=== PATIENT | female | born 1960 ===

== ENCOUNTER 2018-09-09 09:37 | Emergency (ER) | payer MEDICAID, OTHER ==
--- NOTE | 2018-09-09 09:47 | C.PDOC ---
History Of Present Illness 57 year old female presents to ED with complaint of back pain that began a 1 week ago. Patient describes the pain as throbbing to right paraspinal lumbar back. Patient states that she has been taking Tylenol and Motrin with some improvement. Patient came to the ED to figure out why she having this pain. She as a history of chronic back pain, hypertension, and hyperlipidemia. Patient denies IVDA, weight loss, loss of sensation, loss of bladder function, fever, chills, and night sweats. Time Seen by Provider: 09/09/18 09:47 Chief Complaint (Nursing): Back Pain History Per: Patient History/Exam Limitations: no limitations Onset/Duration Of Symptoms: Days (7) Current Symptoms Are (Timing): Still Present Quality Of Discomfort: Other (throbbing) Previous Symptoms: Chronic Pain Associated Symptoms: denies: Incontinence, New Weakness, New Numbness Exacerbating Factor(s): Nothing Past Medical History Reviewed: Historical Data, Nursing Documentation, Vital Signs Vital Signs: Last Vital Signs Temp 98.1 F 09/09/18 09:41 Pulse 70 09/09/18 09:41 Resp 18 09/09/18 09:41 BP 150/81 09/09/18 09:41 Pulse Ox 98 09/09/18 09:41 - Medical History PMH: HTN, Hypercholesterolemia Surgical History: No Surg Hx Family History: States: Unknown Family Hx - Social History Hx Tobacco Use: No Hx Alcohol Use: No Hx Substance Use: No - Immunization History Hx Tetanus Toxoid Vaccination: No Hx Influenza Vaccination: Yes Hx Pneumococcal Vaccination: No Review Of Systems Constitutional: Negative for: Fever, Chills, Sweats, Weakness Eyes: Negative for: Pain, Vision Change ENT: Negative for: Ear Pain, Ear Discharge, Nose Pain, Nose Congestion, Mouth Pain, Mouth Swelling Cardiovascular: Negative for: Chest Pain, Palpitations, Orthopnea, Edema Respiratory: Negative for: Cough, Shortness of Breath, SOB with Excertion, Pleuritic Pain Gastrointestinal: Negative for: Nausea, Vomiting, Abdominal Pain, Constipation, Melena, Hematochezia Genitourinary: Negative for: Dysuria, Frequency, Incontinence, Hematuria, Vaginal Discharge, Vaginal Bleeding, Pelvic Pain, Rash Musculoskeletal: Positive for: Back Pain. Negative for: Neck Pain, Shoulder Pain, Hand Pain Skin: Negative for: Rash, Lesions Neurological: Negative for: Weakness, Numbness, Dizziness Physical Exam - Physical Exam Appears: Well, Non-toxic, No Acute Distress Skin: Normal Color, Warm, Dry Head: Normacephalic Eye(s): bilateral: Normal Inspection, PERRL, EOMI Nose: Normal, No Flaring, No Discharge Oral Mucosa: Moist Tongue: Normal Appearing, No Swelling, No Lesions Throat: Normal, No Erythema, No Exudate, No Drooling, No Mass Neck: Normal, Normal ROM, Trachea Midline, Supple, Other (No meningeal signs) Chest: Symmetrical Cardiovascular: Rhythm Regular, No Friction Rub Respiratory: No Rales, No Rhonchi, No Wheezing Gastrointestinal/Abdominal: Normal Exam, Soft, No Tenderness, No Distention Back: No CVA Tenderness, No Vertebral Tenderness, Paraspinal Tenderness (right sided, lumbar area, L5) Extremity: Normal ROM, No Tenderness, No Pedal Edema, No Calf Tenderness, No Deformity, Other (n/v intact) Extremity: Bilateral: Normal Color And Temperature Pulses: Left Dorsalis Pedis: Normal, Right Dorsalis Pedis: Normal Neurological/Psych: Oriented x3, Normal Speech, Normal Cognition, Normal Motor, Normal Sensation Gait: Steady ED Course And Treatment O2 Sat by Pulse Oximetry: 98 (in RA) - Other Rad L-spine X-ray X-Ray: Interpreted by Me, Viewed By Me Interpretation: IMPRESSION: No acute displaced fracture or subluxation. Degenerative changes. Medical Decision Making Medical Decision Making: Impression: 57 year old female with back pain. No vertebral tenderness. No FND. Normal neuro exam. Walking well in NAD. No ripping back pain. No abdominal pain. No GI or complaints. No Rashes. No fall or trauma. No hx of IVDU. No midline tenderness of signs of cauda equina. Likely MSK pain vs UTI. Plan: Patient given Flexeril PO and Tylenol PO Lumbar Spine X-ray UA ordered for patient Differential Dx: Likely lumbar strain 2304 +UTI, NOCVAT afebrile pt in NAD, well appearing. Non pyelo given no CVAT, and reproducible pain likely lumbar strain and UTI repeat exam unremarkable, remains w/ out midline pain or cauda equina signs or symptoms strong steady gait, ambulatory, pain fully resolved. clear for d/c home with return indications and followup Disposition - Disposition Referrals: Fifi Abdul DO [Doctor Osteopathy] - [facility] [Outside] [facility] [Outside] [facility] [Outside] Sam Raímrez III, MD [Staff Provider] - Disposition: HOME/ ROUTINE Disposition Time: 11:21 Condition: GOOD Additional Instructions: KAJAL REED, thank you for letting us take care of you today. Your provider was Oh Kay and you were treated for BACK PAIN. The emergency medical care you received today was directed at your acute symptoms. If you were prescribed any medication, please fill it and take as directed. It may take several days for your symptoms to resolve. Return to the Emergency Department if your symptoms worsen, do not improve, or if you have any other problems. Please contact your doctor or call one of the physicians/clinics you have been r eferred to that are listed on the Patient Visit Information form that is included in your discharge packet. Bring any paperwork you were given at discharge with you along with any medications you are taking to your follow up visit. Our treatment cannot replace ongoing medical care by a primary care provider outside of the emergency department. Thank you for allowing the [facility] team to be part of your care today. If you had an X-Ray or CT scan: A Radiologist will review the ED reading if any change in treatment is needed we will contact you. If you had a blood, urine, or wound culture: It will take several days for the results, if any change in treatment is needed we will contact you. If you had an STI test: It will take 48 hours for the results. Please call after 1 week if you have not heard back. Prescriptions: Cefpodoxime [Vantin] 200 mg PO BID 10 Days #20 tab Cyclobenzaprine [Flexeril] 5 mg PO Q12H PRN 3 Days #6 tab PRN Reason: Pain, Moderate (4-7) Instructions: Muscle Strain (DC), Urinary Tract Infection, Adult (DC), Lumbar Muscle Strain (DC) Forms: [facility] (L[place]anese), Work Excuse - Clinical Impression Clinical Impression: Low back strain, UTI (urinary tract infection) - Scribe Statement The provider has reviewed the documentation as recorded by the Scribe (Quin Santana) All medical record entries made by the Scribe were at my direction and personally dictated by me. I have reviewed the chart and agree that the record accurately reflects my personal performance of the history, physical exam, medical decision making, and the department course for this patient. I have also personally directed, reviewed, and agree with the discharge instructions and disposition.
[2018-09-09 10:53] LABS: SQUAMOUS EPITHIAL 2 /hpf (0-5); URINE BACTERIA MOD (<OCC); URINE BILIRUBIN NEGATIVE (NEGATIVE); URINE BLOOD NEGATIVE (NEGATIVE); URINE CLARITY Clear (Clear); URINE COLOR Yellow (YELLOW); URINE GLUCOSE (UA) NORMAL (Normal); URINE LEUKOCYTE ESTERASE 1+ Leu/uL (Negative); URINE PROTEIN NEGATIVE (NEGATIVE); URINE UROBILINOGEN NORMAL mg/dL (0.2-1.0)
[2018-09-09 11:20] VITALS: BP 137/75; PULSE 62; RESP 16; TEMP 97.5
[2018-09-09 11:23] VITALS: O2SAT 98
--- NOTE | 2018-09-09 11:33 | RAD ---
Date of service: 09/09/2018 PROCEDURE: Radiographs of the Lumbar Spine. HISTORY: back pain COMPARISON: Lumbar spine radiographs performed 11/17/14 FINDINGS: BONES: Alignment appears satisfactory. Osseous demineralization limits evaluation for acute fracture lines. Mild degenerative changes including anterior osteophyte formation. No listhesis. No acute displaced fracture identified. DISC SPACES: Joint space narrowing at L5-S1. OTHER FINDINGS: None. IMPRESSION: No acute displaced fracture or subluxation. Degenerative changes.
== END 2018-09-09 11:49 | disposition home or self-care (01) ==
LOC: C.ER 09:37
DX: S39.012A Strain of muscle, fascia and tendon of lower back, initial encounter (principal); X58.XXXA Exposure to other specified factors, initial encounter; N39.0 Urinary tract infection, site not specified